=== PATIENT | male | born 1985 | race Native Hawaiian/Other Pacific Islander ===

== ENCOUNTER → 2022-12-05 | Emergency (ER) | payer MEDICAID ==
[~2022-12-05] MED LIST: AMOX-423 PO; IBUP-1971 PO; KETO10TA2 PO; ONDA-8 TL; PERC10 PO; TAMS-11 PO
--- NOTE | 2022-12-05 15:26 | NUR ---
called for triage no answer
--- NOTE | 2022-12-05 15:33 | NUR ---
called for triage. no answer
--- NOTE | 2022-12-05 15:49 | NUR ---
called for triage no answer. left without being triaged
== END | disposition left against medical advice (07) ==
LOC: SED 15:08
DX: M54.50 Low back pain, unspecified (principal); Z53.21 Procedure and treatment not carried out due to patient leaving prior to being seen by health care provider

== ENCOUNTER 2023-07-20 22:14 | Emergency (ER) | payer SELFPAY ==
[~2023-07-20] VITALS: Ht 182.9 cm; Wt 133.8 kg
[2023-07-20 22:27] VITALS: BP_SYST 131; PULSE 91; RESP 20; TEMP 98.6; O2SAT 97
[2023-07-21 01:20] LABS: COVID19 ANTIGEN SOFIA FIA NEGATIVE (NEGATIVE)
[2023-07-21 01:21] LABS: BASOPHILS % (AUTO) 0.7 % (0.0-2.0); EOSINOPHILS # (AUTO) 0.1 K/uL (0.0-0.4); HEMATOCRIT 37.4 % (36-54); HEMOGLOBIN 12.9 g/dL (14.0-18.0); LYMPHOCYTES # (AUTO) 2.2 K/uL (1.0-5.5); MEAN CORPUSCULAR HEMOGLOBIN 28 pg (27-31); MEAN CORPUSCULAR HGB CONC 35 % (32-36); MEAN CORPUSCULAR VOLUME 82 fL (79.0-98.0); MONOCYTES # (AUTO) 1.2 K/uL (0.0-1.0); MONOCYTES % (AUTO) 18.1 % (1.7-9.3); NEUTROPHILS # (AUTO) 3.1 K/uL (1.8-7.7); NEUTROPHILS % (AUTO) 47.2 % (40.0-70.0); PLATELET COUNT (AUTO) 166 K/uL (130-430); RED BLOOD CELL COUNT(AUTO) 4.56 MIL/uL (4.2-6.2); RED CELL DISTRIBUTION WIDTH 13.6 % (9.0-15.0); WHITE BLOOD COUNT (AUTO) 6.7 K/uL (4.8-10.8)
[2023-07-21 01:40] LABS: INFLUENZA TYPE B NEGATIVE (NEGATIVE)
[2023-07-21 01:42] LABS: INFLUENZA TYPE A POSITIVE (NEGATIVE)
[2023-07-21 02:01] LABS: ANION GAP 12 (5-15); CALCIUM 8.4 mg/dL (8.4-11.0); CARBON DIOXIDE 26 mmol/L (23-29); CHLORIDE 104 mmol/L (98-107); CREATININE 0.86 mg/dL (0.55-1.30); GFR AFRICAN AMERICAN 128 mL/min (>90); GFR NON AFRICAN-AMERICAN 106 mL/min (>90); GLUCOSE 96 mg/dL (74-106); POTASSIUM 3.6 mmol/L (3.5-5.1); SODIUM SERUM 142 mmol/L (136-145); UREA NITROGEN, BLOOD 10 mg/dL (8-21)
[2023-07-21 02:26] VITALS: BP_SYST 120; PULSE 15; RESP 20; TEMP 98.2; O2SAT 98
== END 2023-07-21 02:27 | disposition home or self-care (01) ==
LOC: SED 22:14
DX: J10.1 Influenza due to other identified influenza virus with other respiratory manifestations (principal); R07.89 Other chest pain; Z20.822 Contact with and (suspected) exposure to COVID-19
CPT/HCPCS: 36415; 71045; 80048; 84484; 85025; 93005; 99285